=== PATIENT | female | born 1975 ===

== ENCOUNTER → 2021-11-21 | Day surgery (SDC) | payer OTHER | END | disposition home or self-care (01) | LOC: ADM 11-15 08:15 → CIR.AMB 06:57 | PROVIDERS: ATTEND Student in an Organized Health Care Education/Training Program | DX: N84.0 Polyp of corpus uteri (principal); Z20.822 Contact with and (suspected) exposure to COVID-19; Z91.040 Latex allergy status; J45.909 Unspecified asthma, uncomplicated; Z86.16 Personal history of COVID-19; E66.9 Obesity, unspecified ==